=== PATIENT | male | born 1955 | race Two or more races ===

== ENCOUNTER 2025-03-17 06:20 | Day surgery (SDC) | payer OTHER ==
[2025-03-15 13:22] VITALS: BMI 25.0
[2025-03-17] MEDS ORDERED: DEXAMETHASONE SOD PHOSPHATE 4 MG/1 ML VIAL ONE (07:50)
[2025-03-17] MEDS ORDERED: PROPOFOL 60 ML ONE (07:50)
[2025-03-17] MEDS ORDERED: ONDANSETRON 4 MG/2 ML VIAL ONE (07:50)
[2025-03-17] MEDS ORDERED: MIDAZOLAM HCL 2 MG/2 ML SINGLE DOSE VIAL ONE (07:50)
[2025-03-17] MEDS ORDERED: SUCCINYLCHOLINE CHLORIDE 200 MG/10 ML SYRINGE ONE (07:51)
[2025-03-17] MEDS ORDERED: LIDOCAINE HCL/PF 2% SDV 5ML VIAL ONE (07:54)
[2025-03-17] MEDS ORDERED: ceFAZolin SODIUM 1 GM VIAL ONE (09:38)
[2025-03-17] MEDS ORDERED: ACETAMINOPHEN 500 MG TABLET (FP) PO PRN (10:44)
[2025-03-17] MEDS ORDERED: oxyCODONE HCL 5 MG TABLET PO PRN (10:44)
[2025-03-17] MEDS ORDERED: LACTATED RINGERS SOLUTION 1,000 ML IV SCH (10:45)
[2025-03-17 10:59] VITALS: PULSE 62; RESP 18; TEMP 97.6
[2025-03-17 11:39] VITALS: BP 124/75
== END 2025-03-17 11:54 | disposition home or self-care (01) ==
LOC: FASU 06:20
PROVIDERS: ATTEND Urology
PROC: 0VB03ZX Excision of Prostate, Percutaneous Approach, Diagnostic (ICD-10-PCS; principal; 2025-03-17 09:45)
DX: C61 Malignant neoplasm of prostate (principal); R97.20 Elevated prostate specific antigen [PSA]; N41.9 Inflammatory disease of prostate, unspecified
CPT/HCPCS: 88305-TC; 94760